=== PATIENT | male | born 2005 | race Caucasian/White ===

== ENCOUNTER 2023-09-30 14:18 | Emergency (ER) | payer BC, SELFPAY ==
[2023-09-30] VITALS (8 sets, daily range): BP systolic 129–157; BP diastolic 79–101; PULSE 80–101; RESP 16; TEMP 36.8; O2SAT 96–98; BMI 26.4
--- NOTE | 2023-09-30 14:25 | ED_ITS ---
HPI - General Adult General Time Seen by Provider: 14:26 Date Seen: 09/30/23 Chief complaint: Unspecified Complaint, Adult Stated complaint: Took psychedelics-feeling very nauseous Time Seen by Provider: 09/30/23 14:19 Source: patient and RN notes reviewed Mode of arrival: ambulatory Limitations: no limitations History of Present Illness HPI narrative: This 17-year-old college student from [place] is coming in with significant nausea and vomiting after taking mushrooms around 12:50 p.m. today. He source these from a friend, believes them to have been safe. We did discuss the possibility of co ingestion but he is not overtly concerned about where he source to his mushrooms from. This is the 1st time he has ever done this, states it will be the last time. He noticed some wavering vision, otherwise feels oriented. He feels a little anxious and is having significant nausea. He is vomited about 5-6 times prior to arrival. He will sometimes use marijuana, no other illicit substances. He states he does need an really drink. No hallucinations. Related Data Home Medications Medication Instructions Recorded Confirmed No Known Home Medications 09/30/23 09/30/23 Allergies Allergy/AdvReac Type Severity Reaction Status Date / Time Cephalosporins Allergy Unknown Verified 09/30/23 14:26 Review of Systems Status of ROS: Reports: 6 or more systems reviewed and unremarkable except as noted in History and below PFSH PFSH Social History Smoking Status: Never smoker Do you use any of these nicotine containing products: None Second hand tobacco smoke exposure: No How often do you have a drink containing alcohol: monthly or less AUDIT-C Alcohol total score: 1 Non-prescribed substance use: other Non-prescribed substance use details: Took Magic mushrooms today, first time encounter per pt Exam Const: Vital Signs, click to edit/add: Vital Signs - 24 hr 09/30/23 14:26 09/30/23 14:29 09/30/23 14:30 Temperature 98.3 F Pulse Rate 82 94 Pulse Rate [Pulse Oximeter] 101 H Respiratory Rate 16 Blood Pressure Blood Pressure [Ri ght Upper Arm] 157/101 H Pulse Oximetry 97 96 98 Oxygen Delivery Me thod Room Air 09/30/23 14:32 09/30/23 14:55 09/30/23 15:02 Temperature Pulse Rate 80 Pulse Rate [Pulse Oximeter] Respiratory Rate Blood Pressure 148/95 H 139/80 Blood Pressure [Ri ght Upper Arm] Pulse Oximetry 97 97 Oxygen Delivery Me thod Patient is alert, interactive, no apparent distress hanging onto an emesis bag lying in exam room 5. Pupils are equal round, sclera clear, conjugate gaze. Able to speak in complete sentences. Alert and oriented x3. Neck supple, lungs are clear, good air entry, no wheezing or crackles. CV regular rate and rhythm, no murmur, normal S1-S2, no S3-S4. Abdomen is soft, nontender, nondistended, no organomegaly. Moving all extremities, was ambulatory into the ED of his own accord. Skin visualized without rash or abnormalities. Documenting provider has reviewed patient's vital signs: yes Course Course ED Course: EKG was ordered just to ensure QT was normal, certainly there can be concerns with co ingestions and mixing of substances these days even when the patient is unaware, patient and I have discussed this. His QT is fine. Will initiate an IV, give him a L of normal saline and 4 mg IV Zofran. Can consider Ativan if Zofran is not helping. Reevaluation(s) Time of Reevaluation #1: 15:55 Reevaluation #1: Patient has completed his IV fluids, is eating and drinking without complication. He feels the symptoms of the mushroom use are nearly gone. He did relate to me that he took these on an empty stomach. He is feeling better, declines prescription for Zofran. We did discuss that there is theoretical possibility that he could have some rebound nausea. Hopefully not, however, he seems to be resolving from the symptoms of the mushroom use. Vital Signs Vital signs: Initial Vital Signs Temperature 98.3 F 09/30/23 14:26 Temperature Source Temporal Artery Scan 09/30/23 14:26 Pulse Rate 101 H 09/30/23 14:26 Pulse Rhythm Regular 09/30/23 14:26 Respiratory Rate 16 09/30/23 14:26 Blood Pressure 157/101 H 09/30/23 14:26 Blood Pressure Mean 119 H 09/30/23 14:26 Blood Pressure Position Sitting 09/30/23 14:26 Pulse Oximetry 97 09/30/23 14:26 Oxygen Delivery Method Room Air 09/30/23 14:26 Vital Signs Temperature 98.3 F 09/30/23 14:26 Pulse Rate 101 H 09/30/23 14:26 Respiratory Rate 16 09/30/23 14:26 Blood Pressure 157/101 H 09/30/23 14:26 Pulse Oximetry 97 09/30/23 14:26 Oxygen Delivery Method Room Air 09/30/23 14:26 Temperature 98.3 F 09/30/23 14:26 Pulse Rate 80 09/30/23 14:32 Respiratory Rate 16 09/30/23 14:26 Blood Pressure 139/80 09/30/23 15:02 Pulse Oximetry 97 09/30/23 14:55 Oxygen Delivery Method Room Air 09/30/23 14:26 Medications Administered Medications: Discontinued Medications Generic Name Dose Route Start Last Admin Trade Name Freq PRN Reason Stop Dose Admin Sodium Chloride 1,000 mls @ 1,000 mls/hr 09/30/23 14:33 09/30/23 15:22 0.9 % Sodium Chloride 1000 Ml IV 09/30/23 15:32 Infused .Q1H MODESTA Infusion Ondansetron HCl 4 mg 09/30/23 14:33 09/30/23 14:59 Ondansetron 2 Mg/Ml Inj IVP 09/30/23 14:34 4 mg ONCE ONE Administration Medical Decision Making ECG Data Attestation: I personally reviewed and interpreted this ECG as follows: (Sinus tachycardia, 102 beats per minute. No ischemia, no infarct, no arrhythmia. QT corrected 437 milliseconds.) Prior ECG tracings: not available for review Discharge Plan Discharge Clinical Impression: Nausea & vomiting Qualifiers: Vomiting type: unspecified Qualified Code(s): R11.2 - Nausea with vomiting, unspecified Patient Disposition: Home, Self-Care Condition: Stable Instructions: Acute Nausea and Vomiting (ED) Additional Instructions: Stay hydrated, drink plenty of fluids to help flush your system. Appetite is tolerated for solid food. Hopefully you will have no further symptoms. Activity Level: Activity as Tolerated Discharge Diet: Regular Prescriptions: No Action No Known Home Medications Follow Up/Referrals: Provider,Not a Local [Primary Care Provider] - Stand Alone Forms: [employer] Info Instructions
[2023-09-30] MEDS: 0.9 % SODIUM CHLORIDE 1000 ml 1,000 ML IV (14:59)
[2023-09-30] MEDS: ONDANSETRON 2 MG/ML inj 4 MG IVP (14:59)
== END 2023-09-30 16:09 | disposition home or self-care (01) ==
PROVIDERS: Emergency Provider Family Medicine
DX: R11.2 Nausea with vomiting, unspecified (principal)
CPT/HCPCS: 93005; 94761; 96374; 99283; 99284; J2405; J7030

== ENCOUNTER 2024-08-08 17:22 | Emergency (ER) | payer BC, SELFPAY ==
[2024-08-08] VITALS (9 sets, daily range): BP systolic 117–142; BP diastolic 67–96; PULSE 99–125; RESP 9–24; TEMP 37.1; O2SAT 96–100
--- OUTSIDE RECORDS SUMMARY | 2024-08-08 17:24 | XMS_ITS | Clinical Summary ---
Author Organization [facility] Address [address] [place] [address] Care Team Providers Care Information Systems Specialist Name Role Phone Unavailable Primary Care Provider Unavailabl e Allergies Active Allergy Reactions Criticality Noted Date Comments Cephalosporins Hives 07/06/2019 Medications No known medications Active Problems No known active problems Immunizations Name Administration Dates Next Due influenza vaccine quad (FLUZ ONE) multi-dose vial, inj .25 mL or 0.5 mL 07/06/2019 influenza vaccine quad PF (A FLURIA FLUZONE FLULAVAL FLUARIX) inj 0.5 mL 07/15/2017 Social History Tobacco Use Types Packs/Day Years Used Date Smoking Tobacco: Never Assessed Sex and Gender Information Value Date Recorded Sex Assigned at Not on file Gender Identity Not on file Sexual Orientation Not on file Plan of Treatment Health Maintenance Due Date Last Done Comments HPV Vaccines (2 - Male 2-dose series) 08/09/2017 02/06/2017 Covid-19 Vaccine ( season) 2024 10/17/2020, 09/24/2020 Influenza Vaccine (#1) 2024 , 07/06/2019, 07/15/2017, Additional history exists Pneumococcal Vaccine Aged Out 06/08/2004, 04/13/2004, 02/24/2004 No longer eligible based on patient's age to complete this topic Hepatitis B Vaccines Completed 01/30/2006, 09/08/2004, 2003
--- OUTSIDE RECORDS SUMMARY | 2024-08-08 17:24 | XMS_ITS | Continuity of Care Document ---
Author Organization [address] [facility] Address [address] [place] [address] Phone Care Team Providers Care Audio Visual Facilities Engineer Name Role Phone Jon Glez MD Unavailable Unavailable Procedures Procedure Date POSTOP FOLLOW-UP VISIT X-RAY EXAM OF FOREARM OFFICE/OUTPATIENT VISIT, NEW TREAT RADIUS FRACTURE Advance Directives Directive Yes / No Effective Date File Name No Information Encounters Encounter Description Practice Location Reason(s) For Visit Diagnoses Date Provider Providers Copied on Encounter [address] [facility], [address], [place], [place], [facility], tel:[phone] [facility] No Information Amaris Webb. [address] [facility] [address], [place], [place], [id number], [place]. tel:[phone] Referring Provider: Jon Glez, [address] [facility] [address], [place], [address]. tel:[phone] OFFICE/OUTPAT IENT VISIT, NEW [address] [facility], [address], [place], [address], tel:[phone] [facility] No Information Amaris Webb. [address] [facility] [address], [place], [place], [id number], [place]. tel:[phone] Referring Provider: Saúl Burrell, [address], [place], [address]. tel:[phone] Family History Family Member Type Diagnosis Age At Onset No Information Payers Payer name Insurance type Covered alliance party ID Authoriza kattedward(s) BS PPO [id number] Social History Type Description Quantity Date Captured Comments Sex Male Smoking Status No Information Chief Complaint And Reason For Visit No Information Reason For Referral Reason For Referral No Information History Of Present Illness Encounter Date Complaint History Of Prese nt Illness No Information Functional Status Date Functional Assessmen t No Information Instructions Date Instruction Additional Infor mation No Information Assessments Type Assessment Date No Information Patient Care Teams Name Effective Dates (start - stop) Status Members No Information
--- NOTE | 2024-08-08 17:45 | CRLHL7_ITS ---
For Patients: As a result of the Cures Act, medical imaging exams and procedure reports are released immediately into your electronic medical record. You may view this report before your referring provider. If you have questions, please contact your health care provider. INDICATION: Chest pain. Shortness of breath TECHNIQUE: Chest radiograph 2 views COMPARISON: None FINDINGS: Mediastinum: The mediastinum is normal in appearance. The heart silhouette is normal in size and morphology. Lung: Both lungs are unremarkable in appearance. No sign of pleural effusion seen. No pneumothorax is identified. Bone and Soft tissue: Unremarkable for age. IMPRESSION: 1. No acute cardiopulmonary disease is seen. Dictated by: Eric Najera MD @ 08/08/2024 18:19:35 (Electronically Signed)
[2024-08-08] MEDS: LORazepam 2 MG/ML inj 0.5 MG IVP (17:52)
[2024-08-08 17:55] LABS: Basophils Absolute Auto 0.02 K/uL (0.00-0.30); Basophils Percent Auto 0.3 % (0.0-3.0); Eosinophils Absolute Auto 0.03 K/uL (0.00-0.50); Eosinophils Percent Auto 0.4 % (0.0-7.0); Hematocrit 50.9 % (37.0-53.0); Hemoglobin* 17.9 gm/dL (13.5-17.5); Immature Granulocytes Abs Auto 0.01 K/uL (0.00-0.30); Immature Granulocytes Pct Auto 0.1 %; Lymphocytes Absolute Auto 2.79 K/uL (0.90-2.90); Lymphocytes Percent Auto 40.5 % (20-44); Mean Corpuscular HGB Conc 35 gm/dL (32-36); Mean Corpuscular Hemoglobin 31 pg (26-34); Mean Corpuscular Volume 87 fL (80-100); Monocytes Percent Auto 6.4 % (0.0-11.0); Neutrophils Percent Auto 52.3 % (42.0-72.0); Platelet Count* 262 K/uL (140-440); RDW Coefficient of Variation % 11.8 % (11.5-15.5); Red Blood Count 5.84 m/uL (4.30-5.90); White Blood Count* 6.89 K/uL (4.50-11.00)
[2024-08-08 18:00] LABS: Slide Review Reflex No
--- NOTE | 2024-08-08 18:01 | ED_ITS ---
HPI - Chest Pain General Date Seen: 08/08/24 Chief Complaint: Chest Pain Stated Complaint: chest tightness, tingling hands Time Seen by Provider: 08/08/24 17:29 Source: patient and family Mode of arrival: ambulatory Limitations: no limitations History of Present Illness HPI narrative: Patient is a 18-year-old male presenting to emergency department for chest tightness, shortness of breath, tingling sensation in his hands. His mom is currently on speaker phone to add further contacts. She states the patient has had episodes like this over the past month and to hurt seems like anxiety issues. Today though symptoms were much worse so he came to the emergency department to be evaluated. States symptoms started about an hour ago and have been getting worse since he arrived to the emergency department. Denies fevers, abdominal pain, headache, vision changes. This states he has some midsternal chest tightness. Is feeling slightly dizzy. He denies headache. No family history of at early age. No history of blood clots. He has no other medical problems other than ADHD. States symptoms seem to come on suddenly. She does admit to smoking marijuana earlier in the day. No other concerns Related Data Home Medications ?Medication ?Instructions ?Recorded ?Confirmed methylphenidate HCl 10 mg tablet 10 mg PO 3XD 12/27/23 07/24/24 methylphenidate HCl 18 mg 18 mg PO QDAY 12/27/23 07/24/24 tablet,extended release 24 hr (Concerta) methylphenidate HCl 20 mg tablet 20 mg PO QAM 12/27/23 07/24/24 (Ritalin) Previous Rx's ?Medication ?Instructions ?Recorded hydroxyzine HCl 25 mg tablet 50 mg (2 x 25 mg) PO TID PRN 08/08/24 anxiety #20 tabs Allergies Allergy/AdvReac Type Severity Reaction Status Date / Time Cephalosporins Allergy Unknown Verified 07/24/24 14:39 Review of Systems Status of ROS Reports: 10 or more systems reviewed and unremarkable except as noted in History and below PFSH PFS Social History Smoking Status: Never smoker Do you use any of these nicotine containing products: None Second hand tobacco smoke exposure: No How often do you have a drink containing alcohol: monthly or less AUDIT-C Alcohol total score: 1 Non-prescribed substance use: denies use and other Non-prescribed substance use details: Took Magic mushrooms today, first time encounter per pt service: No Exam Narrative Exam Narrative: Const: Well-nourished, Well-developed, in mild distress Eyes: PERRL, no conjunctival injection, and symmetrical lids HENT: Atraumatic external nose and ears. Moist mucous membranes. Neck: Symmetric, trachea midline, No thyromegaly. CVS: Tachycardia, No murmurs or gallops. Peripheral pulses 2+ and equal in all extremities RESP: Unlabored respiratory effort. Clear to auscultation bilaterally. GI: Nontender/Nondistended, No rebound or guarding. MSK:Extremities w/o deformity, Normal Active ROM Skin: Warm, Dry. No rashes or lesions. Neuro: Normal Muscle tone, No focal neurological deficits. Psych: Awake, Alert, & Oriented x3. Appropriate mood and affect. Const Vital Signs, click to edit/add: Vital Signs - 24 hr 08/08/24 17:29 08/08/24 17:42 08/08/24 17:46 Temperature 98.7 F Pulse Rate 110 H Pulse Rate [Pulse Oximeter] 125 H Respiratory Rate 24 Blood Pressure 117/89 Blood Pressure [Right Upper Arm] 142/86 H Pulse Oximetry 98 100 Oxygen Delivery Method Room Air 08/08/24 18:01 08/08/24 18:15 08/08/24 18:22 Temperature Pulse Rate 107 H 99 Pulse Rate [Pulse Oximeter] Respiratory Rate 11 L 19 9 L Blood Pressure 131/96 H 132/67 Blood Pressure [Right Upper Arm] Pulse Oximetry 99 96 Oxygen Delivery Method 08/08/24 18:30 08/08/24 18:42 08/08/24 18:45 Temperature Pulse Rate Pulse Rate [Pulse Oximeter] Respiratory Rate 15 21 9 L Blood Pressure 137/82 Blood Pressure [Right Upper Arm] Pulse Oximetry Oxygen Delivery Method Course Vital Signs Vital signs: Initial Vital Signs Temperature 98.7 F 08/08/24 17:29 Temperature Source Temporal Artery Scan 08/08/24 17:29 Pulse Rate 125 H 08/08/24 17:29 Respiratory Rate 24 08/08/24 17:29 Blood Pressure 142/86 H 08/08/24 17:29 Blood Pressure Mean 104 08/08/24 17:29 Blood Pressure Position Sitting 08/08/24 17:29 Pulse Oximetry 98 08/08/24 17:29 Oxygen Delivery Method Room Air 08/08/24 17:29 Vital Signs Temperature 98.7 F 08/08/24 17:29 Pulse Rate 125 H 08/08/24 17:29 Respiratory Rate 24 08/08/24 17:29 Blood Pressure 142/86 H 08/08/24 17:29 Pulse Oximetry 98 08/08/24 17:29 Oxygen Delivery Method Room Air 08/08/24 17:29 Temperature 98.7 F 08/08/24 17:29 Pulse Rate 99 08/08/24 18:15 Respiratory Rate 9 L 08/08/24 18:45 Blood Pressure 137/82 08/08/24 18:42 Pulse Oximetry 96 08/08/24 18:15 Oxygen Delivery Method Room Air 08/08/24 17:29 Medications Administered Medications: Discontinued Medications Generic Name Dose Route Start Last Admin Trade Name Freq PRN Reason Stop Dose Admin Lorazepam 0.5 mg 08/08/24 17:46 08/08/24 17:52 Lorazepam 2 Mg/Ml Inj IVP 08/08/24 17:47 0.5 mg ONCE ONE Administration MDM - Chest Pain MDM Narrative Medical decision making narrative: Patient is a 18-year-old male presenting to the emergency department for chest pain. The differential diagnosis of chest pain is broad and includes common etiologies such as musculoskeletal strain, GERD, pneumonia, etc. More serious etiologies considered include PE, coronary artery disease, pneumothorax, aortic dissection, aortic aneurysm. Due to his tachycardia he cannot be ruled out of a PE. D-dimer ordered. EKG and troponin order to the signs of ACS. He is otherwise appearing stable I believe aortic dissection and aortic aneurysm I unlikely. Chest x-ray ordered to look for signs pneumonia or pneumothorax. Based on his history though I think right now most likely symptoms are related to anxiety. Ativan given D-dimer within normal limits and PE can be rule out. CBC shows no concerning abnormalities. BMP shows no concerning findings. Viral swabs are negative. EKG and troponin showed no concerning abnormalities. Chest x-ray reviewed by myself and the radiologist shows no concerning findings. This point he is feeling much better and when I was in the room his heart rate was in the 90s. On my review vital signs are stable throughout time in in the emergency department. Oximetry stayed in the mid to high 90s. premium service representative showed no concerning arrhythmias. At this point I believe his symptoms are related to his anxiety and he will be discharged. He is agreeable to this plan. Hydroxyzine provided for anxiety Lab Data Labs: Lab Results 08/08/24 08/08/24 Range/Units 17:44 17:45 WBC 6.89 (4.50-11.00) K/uL RBC 5.84 (4.30-5.90) m/uL Hgb 17.9 H (13.5-17.5) gm/dL Hct 50.9 (37.0-53.0) % MCV 87 (80-100) fL MCH 31 (26-34) pg MCHC 35 (32-36) gm/dL RDW Coeff of [place] 11.8 (11.5-15.5) % Plt Count 262 (140-440) K/uL Neut % (Auto) 52.3 (42.0-72.0) % Lymph % (Auto) 40.5 (20-44) % Morton % (Auto) 6.4 (0.0-11.0) % Eos % (Auto) 0.4 (0.0-7.0) % Baso % (Auto) 0.3 (0.0-3.0) % Neut # (Auto) 3.60 (1.7-7.0) K/uL Lymph # (Auto) 2.79 (0.90-2.90) K/uL Morton # (Auto) 0.40 (0.00-0.90) K/UL Eos # (Auto) 0.03 (0.00-0.50) K/uL Baso # (Auto) 0.02 (0.00-0.30) K/uL Abs Immat Gran (auto) 0.01 (0.00-0.30) K/uL Imm/Tot Granulo (auto) 0.1 % D-Dimer Quant (PE/DVT) 0.06 (0.00-0.50) ug/ml Sodium 140 (135-149) mmol/L Potassium 3.4 L (3.6-5.1) mmol/L Chloride 101 (96-114) mmol/L Carbon Dioxide 22 (20-32) mmol/L Anion Gap 17 H (7-15) mEq/L BUN 12 (5-24) mg/dL Creatinine 0.8 (0.5-1.5) mg/dL Estimated GFR 130 ml/min Glucose 114 (60-115) mg/dL Calcium 10.3 (8.4-10.6) mg/dL SARS-CoV-2 (PCR) Negative SARS-CoV-2 (Negative) Influenza Type A (PCR) Negative PCR FLU A (Negative) Influenza Type B (PCR) Negative PCR FLU B (Negative) RSV (PCR) Negative PCR RSV (Negative) POC Troponin I 0.00 L (0.01-0.04) ng/ml Imaging Data Chest x-ray: Attestation: I have reviewed the pertinent imaging results. Radiologist's impression: 1. No acute cardiopulmonary disease is seen. Dictated by: Eric Najera MD @ 08/08/2024 18:19:35 ECG Data Attestation: I personally reviewed and interpreted this ECG as follows: Prior ECG tracings: available for review Interpretation: Sinus tachycardia with rate 121 beats per minute, normal intervals, normal axis, no ST or T-wave abnormalities. Appears similar previous EKG on file. Discharge Plan Discharge Clinical Impression: Atypical chest pain Patient Disposition: Home, Self-Care Condition: Stable Instructions: Noncardiac Chest Pain (ED) Additional Instructions: I do believe your symptoms are related to anxiety. I do recommend follow-up with your primary care provider to possibly be started on anxiety medication. Return to emergency department for any other new or worsening symptoms Prescriptions: New hydroxyzine HCl 25 mg tablet 50 mg PO TID PRN (Reason: anxiety) Qty: 20 0RF Rx Instructions: Take 25-50 mg at a time for anxiety. No Action methylphenidate HCl 10 mg tablet 10 mg PO 3XD methylphenidate HCl [Ritalin] 20 mg tablet 20 mg PO QAM methylphenidate HCl [Concerta] 18 mg tablet extended release 24hr 18 mg PO QDAY Follow Up/Referrals: Provider,Not a Local [Primary Care Provider] - Stand Alone Forms: [employer] Info Instructions
[2024-08-08 18:07] LABS: Chloride* 101 mmol/L (96-114); Potassium* 3.4 mmol/L (3.6-5.1); Sodium* 140 mmol/L (135-149)
[2024-08-08 18:10] LABS: Creatinine* 0.8 mg/dL (0.5-1.5); Estimated Glomerular Filt Rate 130 ml/min
[2024-08-08 18:11] LABS: Anion Gap 17 mEq/L (7-15); Blood Urea Nitrogen* 12 mg/dL (5-24); Calcium* 10.3 mg/dL (8.4-10.6); Carbon Dioxide* 22 mmol/L (20-32); Glucose* 114 mg/dL (60-115)
[2024-08-08 18:18] LABS: D Dimer Quantitative* 0.06 ug/ml (0.00-0.50)
[2024-08-08 18:35] LABS: PCR FLU A Negative PCR FLU A (Negative); PCR FLU B Negative PCR FLU B (Negative); PCR RSV Negative PCR RSV (Negative); SARS PCR* Negative SARS-CoV-2 (Negative)
--- OUTSIDE RECORDS SUMMARY | 2024-08-08 18:52 | XMS_ITS | Clinical Summary ---
Author Organization [facility] Address [address] [place] [address] Care Team Providers Care Licensed Practical Nurse Name Role Phone Unavailable Primary Care Provider [...]
--- OUTSIDE RECORDS SUMMARY | 2024-08-08 18:52 | XMS_ITS | Continuity of Care Document ---
Author Organization [address] [facility] Address [address] [place] [address] Phone Care Team Providers Care Paper Cutting Machine Operator Name Role Phone Jon Glez MD Unavailable Unavailable Procedures Procedure Date POSTOP FOLLOW-UP VISIT X-RAY EXAM OF FOREARM OFFICE/OUTPATIENT VISIT, NEW TREAT RADIUS FRACTURE Advance Directives Directive Yes / No Effective Date File Name No Information Encounters Encounter Description Practice Location Reason(s) For Visit Diagnoses Date Provider Providers Copied on Encounter [address] [facility], [address], [place], [place], [facility], tel:[phone] [facility] [address] No Information Amaris Webb. [address] [facility] [address], [place], [place], [id number], [place]. tel:[phone] Referring Provider: Jon Glez, [address] [facility] [address], [place], [address]. tel:[phone] OFFICE/OUTPAT IENT VISIT, NEW [address] [facility], [address], [place], [address], tel:[phone] [facility] No Information Amaris Webb. [address] [facility] [address], [place], [place], [id number], [place]. tel:[phone] Referring Provider: Saúl Burrell, [address], [place], [address]. tel:[phone] Family History Family Member Type Diagnosis Age At Onset No Information Payers Payer name Insurance type Covered democrat ID Authoriza kattedward(s) BS PPO [id number] Social History Type Description Quantity Date Captured [...]
== END 2024-08-08 19:02 | disposition home or self-care (01) ==
LOC: ED 18:49
PROVIDERS: Emergency Provider Student in an Organized Health Care Education/Training Program
DX: F41.9 Anxiety disorder, unspecified (principal); R20.2 Paresthesia of skin; R00.0 Tachycardia, unspecified
CPT/HCPCS: 36415; 71046; 80048; 84484; 85025; 85379; 87631; 93005; 96374; 99284; 99285; J2060

== ENCOUNTER 2024-08-10 01:17 | Emergency (ER) | payer BC, SELFPAY ==
--- OUTSIDE RECORDS SUMMARY | 2024-08-10 01:19 | XMS_ITS | Continuity of Care Document ---
Author Organization [address] [facility] Address [address] [place] [address] Phone Care Team Providers Care Administrative Medical Director Name Role Phone Jon Glez MD Unavailable Unavailable Procedures Procedure Date POSTOP FOLLOW-UP VISIT X-RAY EXAM OF FOREARM OFFICE/OUTPATIENT VISIT, NEW TREAT RADIUS FRACTURE Advance Directives Directive Yes / No Effective Date File Name No Information Encounters Encounter Description Practice Location Reason(s) For Visit Diagnoses Date Provider Providers Copied on Encounter [address] [facility], [address], [place], [place], [facility], tel:[phone] [facility] No Information Amaris Webb. [address] [facility] [address], [place], [place], [id number], [place]. tel:[phone] Referring Provider: Jon Glez, [address] [facility] [address], [place], [address]. tel:[phone] OFFICE/OUTPAT IENT VISIT, NEW [address] [facility], [address], [place], [address], tel:[phone] [facility] No Information Amaris Webb. [address] [facility] [address], [place], [place], [id number], [place]. tel:[phone] Referring Provider: Saúl Burrell, [address], [place], [address]. tel:[phone] Family History Family Member Type Diagnosis Age At Onset No Information Payers Payer name Insurance type Covered republican ID Authoriza kattedward(s) BS PPO [id number] Social History Type Description Quantity Date Captured [...]
[2024-08-10 01:21] VITALS: BP 129/79; PULSE 99; RESP 18; TEMP 36.6; O2SAT 98; BMI 19.9
--- NOTE | 2024-08-10 02:03 | ED_ITS ---
HPI - General Adult General Chief complaint: Anxiety Stated complaint: Tightness in chest, L arm tingling Time Seen by Provider: 08/10/24 01:39 Source: patient Mode of arrival: ambulatory Limitations: no limitations History of Present Illness HPI narrative: 18-year-old male presents the emergency department for the 3rd time in 2 weeks, 2nd time in the last 48 hours for evaluation of feelings of bilateral and ting ling and feeling of racing heart. Did have some tingling in the left leg as well which has resolved. No motor changes were associated with this. Patient had extensive workup just over 24 hours ago including normal blood work, negative D-dimer, normal EKG, cardiac monitoring. He received lorazepam in the ED and was sent home with a prescription for Vistaril. He reports that his symptoms started about 90 minutes ago and have now improved. In retrospect, he is confident that this was likely anxiety again. He has not yet made an appointment with a counselor. No focal neurological changes, no motor changes, no vision changes, no difficulty swallowing. I gave very laura with him and ask what is going on in terms of his psychosocial stressors that is causing him to manifest his stress physically like this. He reports that he had a bad semester and was doing poorly with academics. He has not been getting his assignments done in the last couple of weeks and has been missing class and is in danger of doing poorly again this trimester. He does tend to deflect these feelings with alcohol and marijuana at times. He also admits that he eats a poor diet, lots of sugar and processed foods and that this seems to give him more anxiety. He has not smoked any marijuana for about 48 hours, wonders why he is still having anxiety. No alcohol in the past 24 hours. He did try taking 1 of the Vistaril tablets that he was prescribed in the ED and reports that it made him feel drowsy but did not take away the feelings of physical anxiety. ED note an extensive workup are reviewed. Past medical history notable for ADHD, only long-term medications methylphenidate. Cephalosporin allergy. Regular use of marijuana and social alcohol. ROS notable for the generalized, anxiety and neurological symptoms as above. Related Data Home Medications ?Medication ?Instructions ?Recorded ?Confirmed methylphenidate HCl 10 mg tablet 10 mg PO 3XD 12/27/23 07/24/24 methylphenidate HCl 18 mg 18 mg PO QDAY 12/27/23 07/24/24 tablet,extended release 24 hr (Concerta) methylphenidate HCl 20 mg tablet 20 mg PO QAM 12/27/23 07/24/24 (Ritalin) Previous Rx's ?Medication ?Instructions ?Recorded hydroxyzine HCl 25 mg tablet 50 mg (2 x 25 mg) PO TID PRN 08/08/24 anxiety #20 tabs Allergies Allergy/AdvReac Type Severity Reaction Status Date / Time Cephalosporins Allergy Unknown [facility]24 14[facility] Social History Smoking Status: Never smoker Do you use any of these nicotine containing products: None Second hand tobacco smoke exposure: No How often do you have a drink containing alcohol: monthly or less AUDIT-C Alcohol total score: 1 Non-prescribed substance use: denies use and other Non-prescribed substance use details: Took Magic mushrooms today, first time encounter per pt service: No Exam Const: Vital Signs, click to edit/add: Vital Signs - 24 hr 08/10/24 01:21 Temperature 97.9 F Pulse Rate [Left P ulse Oximeter] 99 Respiratory Rate 18 Blood Pressure [Ri ght Upper Arm] 129/79 Pulse Oximetry 98 Oxygen Delivery Me thod Room Air Documenting provider has reviewed patient's vital signs: yes Common normals: no apparent distress and alert General appearance: well kempt Other: Anxious but redirectable. Well nourished and well hydrated, all basic needs met. HENMT: Common normals: normocephalic, TM's normal bilaterally, moist oral mucous membranes and oropharynx normal Head and scalp: normocephalic Face and sinus: normal facial exam Tympanic membrane: TM's normal bilaterally Mouth: oral and palatal mucosa normal Eye: Common normals: conjunctivae normal General eye: normal appearance of both eyes Conjunctiva: conjunctiva(e) normal Neck & C-Spine: Common normals: full ROM and no lymphadenopathy Resp: Common normals: normal respiratory effort, no use of accessory muscles and clear to auscultation bilaterally Effort & inspection: able to speak in complete sentences Auscultation: clear to auscultation bilaterally Cardio: Common normals: regular rate, regular rhythm, S1 normal heart sound, S2 normal heart sound and no murmurs Rate: regular rate Rhythm: regular rhythm Heart sounds: S1 normal and S2 normal Extremity: Common normals: normal to inspection and normal capillary refill Neuro: Common normals: CN's II-XII intact bilaterally, moves all extremities and no focal motor deficits Sensorium/orientation: alert Coordination/balance: tandem gait normal Gait (neuro): normal gait Coordination: Romberg test normal and tandem gait normal Psych: Common normals: thought process normal Appearance: well kempt Attitude: engaged Mood and affect: anxious Thought process: normal thought process Thought content: normal thought content Attention/concentration: attention grossly intact Memory/cognition: memory grossly intact Insight: insight good Judgement: judgment good Skin: Common normals: no rashes or lesions noted General skin exam: no rashes or lesions noted Course Course ED Course: 18-year-old male presenting with bilateral hand tingling and feeling of racing heart. Initial vitals are reassuring. EKG is collected and this shows normal sinus rhythm with a rate of 66. No significant ST or T-wave abnormalities, unchanged from 07/24/2024. ED notes from previous day reviewed. Extensive workup will not be repeated today. I discussed my rationale with patient and he is in agreement. He does feel guilty for coming back to the emergency room again so we spent some time reviewing and discussing alarm symptoms verses reassuring symptoms. Discussed how often if symptoms like chest tightness, racing heart or worse with rest than they are with exertion, that can be a sign that it is more likely related to anxiety. We also discussed the bilateral hand tingling is rarely a neurological danger but is a very common manifestation of anxiety. Dizziness, hyper sensory awareness, sudden feeling of doom without other focal neurological changes are likely to happen again. We spent a lot of time discussing that I do think he is deflecting from his main problem which is academics. Encouraged him to avoid alcohol, marijuana. Encouraged working out a couple of days per week and also a better diet and regular sleep pattern.. Distracting himself from his primary academic goals with other side [employer]. Patient is in agreement that this seems to be the root of the problem. He may continue using the Vistaril p.r.n.. He will be discharged from the ED with normal EKG and no further workup. Vital Signs Vital signs: Initial Vital Signs Temperature 97.9 F 08/10/24 01:21 Temperature Source Temporal Artery Scan 08/10/24 01:21 Pulse Rate 99 08/10/24 01:21 Pulse Rhythm Regular 08/10/24 01:21 Respiratory Rate 18 08/10/24 01:21 Blood Pressure 129/79 08/10/24 01:21 Blood Pressure Mean 95 08/10/24 01:21 Blood Pressure Position Sitting 08/10/24 01:21 Pulse Oximetry 98 08/10/24 01:21 Oxygen Delivery Method Room Air 08/10/24 01:21 Vital Signs Temperature 97.9 F 08/10/24 01:21 Pulse Rate 99 08/10/24 01:21 Respiratory Rate 18 08/10/24 01:21 Blood Pressure 129/79 08/10/24 01:21 Pulse Oximetry 98 08/10/24 01:21 Oxygen Delivery Method Room Air 08/10/24 01:21 Temperature 97.9 F 08/10/24 01:21 Pulse Rate 99 08/10/24 01:21 Respiratory Rate 18 08/10/24 01:21 Blood Pressure 129/79 08/10/24 01:21 Pulse Oximetry 98 08/10/24 01:21 Oxygen Delivery Method Room Air 08/10/24 01:21 Discharge Plan Discharge Clinical Impression: Acute anxiety Patient Disposition: Home w/ Parent or Adult Condition: Stable Instructions: Panic Disorder (ED) Additional Instructions: As we discussed, your exhibiting symptoms of physical anxiety, commonly often described as a panic attack. These can feel very different depending on the person. We reviewed signs and symptoms of strokes, true heart attacks and other alarming symptoms that would warrant coming to an emergency department. Please try to consider these again in the future. Remember that symptoms that improve on exertion are typically reassuring. I strongly recommend that you eliminate alcohol and marijuana from your diet for the next 3 months. Make an appointment with a counselor on campus. Make attempts to sleep at least 8 hours per day, avoid naps and workout at least 3 times per week. I do think that most of your panic is stemming from concerns over academics. Focus your energy on managing this. Avoid social media and other distractions. Activity Level: No Restrictions Discharge Diet: Regular Prescriptions: No Action methylphenidate HCl 10 mg tablet 10 mg PO 3XD methylphenidate HCl [Ritalin] 20 mg tablet 20 mg PO QAM methylphenidate HCl [Concerta] 18 mg tablet extended release 24hr 18 mg PO QDAY hydroxyzine HCl 25 mg tablet 50 mg PO TID PRN (Reason: anxiety) Qty: 20 0RF Rx Instructions: Take 25-50 mg at a time for anxiety. Follow Up/Referrals: Provider,Not a Local [Primary Care Provider] - Stand Alone Forms: [employer] Info Instructions
--- OUTSIDE RECORDS SUMMARY | 2024-08-10 02:08 | XMS_ITS | Continuity of Care Document ---
Author Organization [address] [facility] Address [address] [place] [address] Phone Care Team Providers Care Application Dba Name Role Phone Jon Glez MD Unavailable Unavailable Procedures Procedure Date POSTOP FOLLOW-UP VISIT X-RAY EXAM OF FOREARM OFFICE/OUTPATIENT VISIT, NEW TREAT RADIUS FRACTURE Advance Directives Directive Yes / No Effective Date File Name No Information Encounters Encounter Description Practice Location Reason(s) For Visit Diagnoses Date Provider Providers Copied on Encounter [address] [facility], [id number], [place], [place], [facility], tel:[phone] [facility] No Information Amaris Webb. [address] [facility] [address], [place], [place], [id number], [place]. tel:[phone] Referring Provider: Jon Glez, [address] [facility] [address], [place], [address]. tel:[phone] OFFICE/OUTPAT IENT VISIT, NEW [address] [facility], [address], [place], [address], tel:[phone] [facility] [address] No Information Amaris Webb. [address] [facility] [address], [place], [place], [id number], [place]. tel:[phone] Referring Provider: Saúl Burrell, [address], [place], [address]. tel:[phone] Family History Family Member Type Diagnosis Age At Onset No Information Payers Payer name Insurance type Covered republican ID Authoriza kattedward(s) BS PPO [id number] Social History Type Description Quantity Date Captured [...]
== END 2024-08-10 02:18 | disposition home or self-care (01) ==
PROVIDERS: Emergency Provider Family Medicine
DX: F41.9 Anxiety disorder, unspecified (principal)
CPT/HCPCS: 99283

== ENCOUNTER 2024-08-13 11:41 | Outpatient (CLI) | payer BC, SELFPAY | END 2024-08-13 11:42 | disposition home or self-care (01) | PROVIDERS: PCP Family Medicine; Visit Provider Family Medicine | DX: F41.9 Anxiety disorder, unspecified (principal); R10.9 Unspecified abdominal pain; F41.0 Panic disorder [episodic paroxysmal anxiety] | CPT/HCPCS: 83516; 84443 ==